=== PATIENT | male | born 1930 | race Caucasian/White ===

== ENCOUNTER 2017-01-07 21:50 | Emergency (ER) | payer MEDICARE, BC ==
[2017-01-07] MEDS ORDERED: NS 0.9% 1000 ML* 1,000 ML IV ONE (22:40)
[2017-01-07] MEDS ORDERED: Lidocaine 2% VISCOUS* 15 ML UDC PO ONE (22:42)
[2017-01-07] MEDS ORDERED: Al Hydrox/Mg Hydrox/Simet LIQ* 30 ML UDC PO ONE (22:42)
--- NOTE | 2017-01-07 22:44 | ED ---
Mallory Salomon Rebecca, scribed for Tom Roper MD on 01/07/17 at 2238 . HPI Chest Pain - HPI Summary HPI Summary: Pt is an 86 y/o M who presents to ED c/o CP. Pain began suddenly at 0500 this morning upon waking up and has been intermittent since onset. Pain is characterized as midsternal pressure and burning and is currently not present, ranked 0/10. Sx alleviated by food, aggravated by nothing, unchanged by antacids. Denies nausea. No prior similar episodes. last evaluated by PCP 1 month ago. - History of Current Complaint Chief Complaint: EDChestPainROMI Time Seen by Provider: 01/07/17 22:31 Hx Obtained From: Patient Onset/Duration: Started Hours Ago - 17 hours ago, Resolved Time of Onset: 05:00 Timing: Intermittent Current Severity: None Pain Intensity: 0 Pain Scale Used: 0-10 Numeric Chest Pain Location: Mid Sternal Chest Pain Radiates: No Character: Burning, Pressure/Squeezing Aggravating Factor(s): Nothing Alleviating Factor(s): Other: - Food Associated Signs and Symptoms: Positive: Negative. Negative: Nausea - Allergy/Home Medications Allergies/Adverse Reactions: Allergies Allergy/AdvReac Type Severity Reaction Status Date / Time Prednisone Allergy Unknown Verified 05/17/16 15:01 Reaction Details BEES Allergy ITCHING, Uncoded 05/17/16 15:01 HEADACHES, SWELLING AT SITE PMH/Surg Hx/FS Hx/Imm Hx Endocrine/Hematology History: Reports: Hx Thyroid Disease - CONTROL WITH Cardiovascular History: Reports: Hx Hypertension GI History: Reports: Hx Gastroesophageal Reflux Disease - CONTROL WITH MEDS, Hx Ulcer - HX OF IN S Musculoskeletal History: Reports: Hx Arthritis Sensory History: Reports: Hx Contacts or Glasses - GLASSES, Hx Hearing Aid - RIGHT Opthamlomology History: Reports: Hx Contacts or Glasses - GLASSES - Surgical History Surgery Procedure, Year, and Place: BILATERAL INGUINAL HERNIA REPAIR, [facility] AND [facility] Hx Anesthesia Reactions: No Infectious Disease History: Denies: Traveled Outside the [place] in Last 30 Days - Family History Known Family History: Positive: Cardiac Disease, Other - Negative skin CA - Social History Alcohol Use: Rare Substance Use Type: Reports: None Smoking Status (MU): Former Smoker Type: Cigarettes Amount Used/How Often: 1 PPD FOR ABOUT 20 YEARS Length of Time of Smoking/Using Tobacco: 20 YEARS Have You Smoked in the Last Year: No Review of Systems Positive: Chest Pain Negative: Nausea All Other Systems Reviewed And Are Negative: Yes Physical Exam Triage Information Reviewed: Yes Vital Signs On Initial Exam: Initial Vitals Temp Pulse Resp BP Pulse Ox 98.4 F 68 18 125/77 97 01/07/17 21:52 01/07/17 21:52 01/07/17 21:52 01/07/17 21:52 01/07/17 21:52 Vital Signs Reviewed: Yes Appearance: Positive: Well-Appearing, No Pain Distress, Thin Skin: Positive: Warm Head/Face: Positive: Normal Head/Face Inspection Eyes: Positive: HINA ENT: Positive: Hearing grossly normal Neck: Positive: Supple Respiratory/Lung Sounds: Positive: Breath Sounds Present Cardiovascular: Positive: Normal Abdomen Description: Positive: Nontender, Soft Bowel Sounds: Positive: Present Musculoskeletal: Positive: Strength/ROM Intact Diagnostics - Vital Signs Vital Signs Temp Pulse Resp BP Pulse Ox 01/07/17 21:52 98.4 F 68 18 125/77 97 - Laboratory Result Diagrams: 01/07/17 23:00 01/07/17 23:00 Lab Statement: Any lab studies that have been ordered have been reviewed, and results considered in the medical decision making process. - EKG 2207 Cardiac Rate: NL - 61 bpm EKG Rhythm: Atrial Fibrillation EKG Interpretation: Moderate ventricular response, no STEMI Re-Evaluation - Re-Evaluation First Eval Change: Improved - results d/w pt Chest Pain Course/Dx - Course Assessment/Plan: Pt is an 86 y/o M who presents to ED c/o intermittent, midsternal burning/pressure CP since 0500 this morning. Pain is currently not present, ranked 0/10. Sx alleviated by food, aggravated by nothing, unchanged by antacids. Denies nausea. No prior similar episodes. last evaluated by PCP 1 month ago. EKG reveals A Fib with no STEMI. He will be D/C to home with Dx of chest pain and dyspepsia. He understands and agrees. Patient medications reviewed this visit. - Diagnoses Provider Diagnoses: Chest pain, Dyspepsia Discharge - Discharge Plan Condition: Stable Disposition: HOME Prescriptions: Famotidine TAB* [Pepcid 20 MG TAB*] 20 mg PO BID #20 tab Patient Education Materials: Indigestion (ED), Diet for Stomach Ulcers and Gastritis (ED) Referrals: Anatoly Travis MD [Medical Doctor] - 3 Days The documentation as recorded by the Mallory hanna Rebecca accurately reflects the service I personally performed and the decisions made by me, Tom Roper MD.
[2017-01-07 23:13] LABS: Hematocrit 30 % (42-52); Hemoglobin 10.3 g/dl (14.0-18.0); Mean Corpuscular HGB Conc 34 g/dl (31-36); Mean Corpuscular Hemoglobin 36 pg (27-31); Mean Platelet Volume 8 um3 (7.4-10.4); Red Blood Count 2.82 10^6/ul (4.0-5.4); Red Cell Distribution Width 15 % (10.5-15); White Blood Count 4.4 10^3/ul (3.5-10.8)
[2017-01-07 23:15] LABS: Comments Flag Yes
[2017-01-07 23:16] LABS: Mean Corpuscular Volume 107 fL (80-94)
[2017-01-07 23:38] LABS: Albumin 3.8 g/dL (3.2-5.2); C Reactive Protein 3.42 mg/L (< 5.00); Calcium 9.4 mg/dL (8.6-10.3); EGFR African American 95.3 (>60); EGFR Non-African American 74.1 (>60); Globulin 3.7 g/dL (2-4); Magnesium 1.8 mg/dL (1.9-2.7); Potassium 3.9 mmol/L (3.5-5.0); Total Bilirubin 0.6 mg/dL (0.2-1.0); Total Protein 7.5 g/dL (6.4-8.9)
[2017-01-07 23:40] LABS: Troponin I 0.01 ng/mL (<0.04)
[2017-01-08 01:51] VITALS: BP 156/85
== END 2017-01-08 01:54 | disposition home or self-care (01) ==
LOC: ED 21:50
DX: R07.89 Other chest pain (principal); R10.13 Epigastric pain; E07.9 Disorder of thyroid, unspecified; I10 Essential (primary) hypertension; K21.9 Gastro-esophageal reflux disease without esophagitis; K44.9 Diaphragmatic hernia without obstruction or gangrene; Z88.8 Allergy status to other drugs, medicaments and biological substances; Z91.030 Bee allergy status; Z87.891 Personal history of nicotine dependence
CPT/HCPCS: 36415; 80053; 83605; 83690; 83735; 84484; 85025; 85610; 86140; 93005; 96360; 99283; A9270-GY

== ENCOUNTER 2017-05-16 09:50 | Day surgery (SDC) | payer MEDICARE, BC ==
[~2017-05-16 09:50] MED LIST: Buffered Lidocaine 0.9% SYRIN* 5 ML/SYR SYRINGE INTRADERM ONE
[2017-05-16] MEDS ORDERED: ceFAZolin 2 GM PREMIX (*) 2 GM/50 ML BAG IVPB ONE (10:06)
[2017-05-16] MEDS ORDERED: Buffered Lidocaine 0.9% SYRIN* 5 ML/SYR SYRINGE ONE (10:06)
[2017-05-16] MEDS ORDERED: fentaNYL* 50 MCG/ML 2 ML VIAL (100 MCG VIAL) ONE (13:00)
[2017-05-16] MEDS ORDERED: Lidocaine 2% PF * 5 ML VIAL ONE (13:01)
[2017-05-16] MEDS ORDERED: Propofol* 10 MG/ML 20 ML BTL IV PUSH ONE (13:01)
[2017-05-16 15:52] VITALS: BP 134/70
== END 2017-05-16 15:40 | disposition home or self-care (01) ==
LOC: OR 09:50
PROVIDERS: ATTEND Plastic Surgery
DX: C44.212 Basal cell carcinoma of skin of right ear and external auricular canal (principal); I48.91 Unspecified atrial fibrillation; I25.10 Atherosclerotic heart disease of native coronary artery without angina pectoris; Z87.891 Personal history of nicotine dependence; Z95.5 Presence of coronary angioplasty implant and graft; Z79.01 Long term (current) use of anticoagulants; E03.9 Hypothyroidism, unspecified; K21.9 Gastro-esophageal reflux disease without esophagitis; Z79.899 Other long term (current) drug therapy; Z85.828 Personal history of other malignant neoplasm of skin
CPT/HCPCS: 88305; 88331; 88332; J0690; J2704; J3010

== ENCOUNTER 2018-02-10 17:37 | Observation (INO) | payer MEDICARE, BC ==
[2018-02-10] MEDS ORDERED: NS 0.9% 1000 ML* 1,000 ML IV ONE (17:50)
--- NOTE | 2018-02-10 17:58 | ED ---
Neurological HPI - HPI Summary HPI Summary: This is scribe Rahat Attebery documenting for attending Segundo Archibald MD. 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 Assoc. Sx: Tremors, RLE weakness. Denies: CP, SOB, WHITAKER. Patient was reportedly walking when he started dragging his R leg. He notes that he started experiencing tremors upon onset of LE weakness. PMHx: A-fib, skin CA, HTN. Denies Hx of DM. Meds: Coumadin. I, Dr. Archibald, personally performed the services described in this documentation as scribed in my presence and it is both accurate and complete. - History of Current Complaint Chief Complaint: EDNeurologicalDeficit Stated Complaint: RT LEG WEAKNESS Hx Obtained From: Patient Onset/Duration: Sudden Onset, Started minutes ago Timing: Sudden Onset Onset Severity: Severe Pain Intensity: 0 Pain Scale Used: 0-10 Numeric Character: Other: - Weakness Associated Signs and Symptoms: Positive: Weakness - RLE. Negative: Headache, Chest Pain, Shortness of Breath - Allergy/Home Medications Allergies/Adverse Reactions: Allergies Allergy/AdvReac Type Severity Reaction Status Date / Time atorvastatin Allergy Unknown Verified 02/10/18 17:55 Reaction Details bee venom protein (honey bee) Allergy Hives/Diff. Verified 02/10/18 17:55 Breathing/I tching finasteride Allergy Unknown Verified 02/10/18 17:55 Reaction Details metoprolol Allergy Unknown Verified 02/10/18 17:55 Reaction Details prednisone Allergy Unknown Verified 02/10/18 17:55 Reaction Details PMH/Surg Hx/FS Hx/Imm Hx Endocrine/Hematology History: Reports: Hx Thyroid Disease - CONTROL WITH, Hx Anemia - HX OF Cardiovascular History: Reports: Hx Coronary Artery Disease - STENT- MONIQUE-1999 , Hx Hypertension, Other Cardiovascular Problems/Disorders - ATHEROSCLEROTIC HEART DISEASE GI History: Reports: Hx Gastroesophageal Reflux Disease - CONTROL WITH MEDS, Hx Ulcer - HX OF IN Musculoskeletal History: Reports: Hx Arthritis Sensory History: Reports: Hx Cataracts - BILATERAL, Hx Contacts or Glasses - GLASSES, Hx Hearing Aid - BILATERAL Opthamlomology History: Reports: Hx Cataracts - BILATERAL, Hx Contacts or Glasses - GLASSES - Surgical History Surgery Procedure, Year, and Place: BILATERAL INGUINAL HERNIA REPAIR, [facility]LA AND [place]. 1999- CARDIAC STENT PLACEMENT Hx Anesthesia Reactions: No Infectious Disease History: No Infectious Disease History: Denies: Traveled Outside the [place] in Last 30 Days - Family History Known Family History: Positive: Cardiac Disease, Other - Negative skin CA - Social History Occupation: Retired Lives: With Family Alcohol Use: Occasionally Substance Use Type: Reports: None Smoking Status (MU): Former Smoker Type: Cigarettes Amount Used/How Often: 1 PPD FOR ABOUT 20 YEARS Length of Time of Smoking/Using Tobacco: 20 YEARS Have You Smoked in the Last Year: No Review of Systems Negative: Fever Negative: Chest Pain Negative: Shortness Of Breath Negative: Vomiting Neurological: Other - POS: tremors Positive: Weakness - RLE. Negative: Headache All Other Systems Reviewed And Are Negative: Yes Physical Exam - Summary Physical Exam Summary: Appearance: Well appearing, no pain distress Skin: warm, dry, reflects adequate perfusion Head/face: Scars on scalp from skin CA removal. Eyes: EOMI, HINA ENT: tongue tremors (+) Neck: supple, non-tender Respiratory: CTA, breath sounds present Cardiovascular: irregular HB, pulses symmetrical, no murmur Abdomen: non-tender, soft Bowel Sounds: present Musculoskeletal: normal, strength/ROM intact Neuro: normal, sensory motor intact, A&Ox3 Extremities: Bilat LE tremors (+), RUE tremors (+) Triage Information Reviewed: Yes Vital Signs On Initial Exam: Initial Vitals Temp Pulse Resp BP Pulse Ox 98.4 F 93 23 147/86 97 02/10/18 17:47 02/10/18 17:47 02/10/18 17:47 02/10/18 17:47 02/10/18 17:47 Vital Signs Reviewed: Yes Diagnostics - Vital Signs Vital Signs Temp Pulse Resp BP Pulse Ox 02/10/18 17:47 98.4 F 93 23 147/86 97 - Laboratory Result Diagrams: 02/10/18 18:16 02/10/18 18:16 Lab Statement: Any lab studies that have been ordered have been reviewed, and results considered in the medical decision making process. - Radiology CXR Xray Interpretation: Positive (See Comments) - IMPRESSION: Mild cardiomegaly Radiology Interpretation Completed By: Radiologist - report has been reviewed by provider and radiologist - CT Brain CT CT Interpretation: No Acute Changes - IMPRESSION: NO ACUTE INTRACRANIAL PATHOLOGY. CHRONIC SMALL VESSEL ISCHEMIC CHANGES. PRELIMINARY FINDINGS WERE DISCUSSED WITH DR. ARCHIBALD IN THE EMERGENCY DEPARTMENT AT APPROXIMATELY 6:09 PM ON FEBRUARY 10, 2018. CT Interpretation Completed By: Radiologist - Report has been reviewed by provider and radiologist - EKG 1810 Cardiac Rate: NL - 87 bpm EKG Rhythm: Atrial Fibrillation ST Segment: Normal EKG Interpretation: nml axis, Poor R-wave progression NIH Scale - NIH Scale Level of Consciousness: Alert/Keenly Responsive Ask Patient the Month and His/Her Age: Both Correct Ask Pt to Open/Close Eyes and Prototype Sewer/Release Non-Paretic Hand: Both Correctly Best Gaze (Only Horizontal Eye Movement): Normal Visual Field Testing: No Visual Loss Facial Paresis-Pt to Smile & Close Eyes or Grimace Symmetry: Normal/Symmetrical Motor Function - Right Arm: No Drift-Holds 10 Seconds Motor Function - Left Arm: No Drift-Holds 10 Seconds Motor Function - Right Leg: No Drift-Holds 10 Seconds Motor Function - Left Leg: No Drift-Holds 10 Seconds Limb Ataxia-Must be out of Proportion to Weakness Present: Absent Sensory (Use Pinprick to Test Arms/Legs/Trunk/Face): Normal Best Language (Describe Picture, Name Items): No Aphasia Dysarthria (Read Several Words): Normal Extinction and Inattention: No Abnormality Total Score: 0 NIH Stroke Scale Comment: Noticed tremors: KAVEH Neal. Course/Dx - Course Course Of Treatment: Patient with acute onset of right lower extremity weakness 20 minutes prior to arrival. NIH stroke score on arrival is 0. Patient is on Coumadin for atrial fibrillation and is subtherapeutic with an INR of 1.25. Initial head CT negative. NIH stroke score is continues to be 0. Hydrated the patient as his creatinine is elevated over baseline with known chronic renal insufficiency. Full dose aspirin given here. Neurology contacted and will see in consultation. Patient to be admitted to hospitalist service. - Differential Dx Differential Diagnoses Neuro: Positive: Other - Ischemic Stroke, TIA, metabolic abnormality, dehydration, hemorrhagic stroke - Diagnoses Provider Diagnoses: TIA (transient ischemic attack), Subtherapeutic international normalized ratio (INR), Atrial fibrillation, Chronic renal insufficiency - Physician Notifications Discussed Care Of Patient With: Tom Hook Time Discussed With Above Provider: 19:10 Instructed by Provider To: Other - Provider spoke with Dr. Hook regarding further care of patient and he agrees to admission of pt. Discharge - Sign-Out/Discharge Documenting (check all that apply): Patient Departure - Discharge Plan Condition: Guarded Disposition: ADMITTED TO [facility] Referrals: Amber Travis MD [Primary Care Provider] - - Billing Disposition and Condition Condition: GUARDED Disposition: Admitted to [facility] Attestations Scribe Attestation: I, Dr. Archibald personally performed the services described in this documentation as scribed in my presence and it is both accurate and complete User Type: Provider
--- NOTE | 2018-02-10 18:08 | RAD ---
HISTORY: Neurological Changes/Code Krause COMPARISONS: November 19, 2004 VIEWS: 1: frontal portable view of the chest at 5:55 PM FINDINGS: LINES AND TUBES: None. CARDIOMEDIASTINAL SILHOUETTE: The cardiac silhouette is mildly enlarged. The cardiomediastinal silhouette is otherwise normal for portable technique. PLEURA: The costophrenic angles are sharp. No pleural abnormalities are noted. LUNG PARENCHYMA: The lungs are clear. ABDOMEN: The upper abdomen is clear. There is no subphrenic gas. BONES AND SOFT TISSUES: No bone or soft tissue abnormalities are noted. IMPRESSION: MILD CARDIOMEGALY.
--- NOTE | 2018-02-10 18:13 | RAD ---
HISTORY: Neurological changes/code guillen COMPARISONS: None TECHNIQUE: Multiple contiguous axial CT scans were obtained of the head without intravenous contrast. FINDINGS: HEMORRHAGE/INFARCT: There is no hemorrhage or acute infarct. MASSES/SHIFT: There is no mass or shift. EXTRA-AXIAL SPACES: There are no extra-axial fluid collections. SULCI AND VENTRICLES: The sulci and ventricles are normal in size and position for the patient's stated age. CEREBRUM: There is hypoattenuation of the periventricular and subcortical white matter. 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 BRAINSTEM: There are no focal parenchymal abnormalities. CEREBELLUM: There are no focal parenchymal abnormalities. VESSELS: There is calcification of the cavernous segments of the internal carotid arteries bilaterally and of the distal vertebral arteries bilaterally. PARANASAL SINUSES: The paranasal sinuses are clear. ORBITS: The orbits are unremarkable. BONES AND SOFT TISSUE: No bone or soft tissue abnormalities are noted. OTHER: None IMPRESSION: NO ACUTE INTRACRANIAL PATHOLOGY. CHRONIC SMALL VESSEL ISCHEMIC CHANGES. PRELIMINARY FINDINGS WERE DISCUSSED WITH DR. EDUARDO IN THE EMERGENCY DEPARTMENT AT APPROXIMATELY 6:09 PM ON FEBRUARY 10, 2018.
[2018-02-10 18:25] LABS: Hematocrit 29 % (42-52); Hemoglobin 10.2 g/dl (14.0-18.0); Mean Corpuscular HGB Conc 35 g/dl (31-36); Mean Corpuscular Hemoglobin 36 pg (27-31); Mean Corpuscular Volume 104 fL (80-94); Mean Platelet Volume 8.1 um3 (7.4-10.4); Platelet Count 170 10^3/ul (150-450); Red Blood Count 2.82 10^6/ul (4.00-5.40); Red Cell Distribution Width 15 % (10.5-15); White Blood Count 5.5 10^3/ul (3.5-10.8)
[2018-02-10 18:26] LABS: ABS Basophils 0 10^3/ul (0-0.2); ABS Eosinophils 0 10^3/ul (0-0.6); ABS Lymphocytes 0.9 10^3/ul (1.0-4.8); ABS Neutrophils 3.6 10^3/ul (1.5-7.7); ABS Nucleated RBC 0 10^3/ul
[2018-02-10 18:33] LABS: INR 1.25 (0.77-1.02)
[2018-02-10 18:42] LABS: EGFR Non-African American 39.5 (>60)
[2018-02-10] MEDS ORDERED: Aspirin 81 mg CHEW TAB* 81 MG TAB.CHEW PO ONE (19:10)
[2018-02-10 19:38] LABS: Eosinophil % 0.1 % (0-6); Lymphocyte % 16.6 % (25-47); Nucleated Red Blood Cells % 0.2
[2018-02-10] MEDS ORDERED: Ondansetron INJ* 2 MG/ML VIAL IV PRN (20:28)
[2018-02-10] MEDS ORDERED: Acetaminophen TAB* 325 MG PO PRN (20:28)
[2018-02-10] MEDS ORDERED: NS 0.9% 1000 ML* 1,000 ML IV SCH (20:30)
--- NOTE | 2018-02-11 00:05 | HP ---
CC: Dr. Travis; Dr. Hook.* HISTORY AND PHYSICAL: DATE OF ADMISSION: 02/10/18 PRIMARY CARE PROVIDER: Dr. Travis. ATTENDING PHYSICIAN WHILE IN THE HOSPITAL: Dr. Rakesh Conde * (report dictated by Jake Narvaez NP). CONSULTING NEUROLOGIST: Dr. Hook. CHIEF COMPLAINT: Difficulty moving right leg. HISTORY OF PRESENT ILLNESS: Mr. Wakefield is an 88-year-old male patient. He carries a history of hypertension, CAD, skin cancer, GERD, arthritis, BPH, and hyperlipidemia. He has a history of AFib as well. He is on chronic anticoagulation. He is presenting today. He was living in his son's house. They were playing a game of cards and having lunch, he was walking. He typically has pain in his left hip, but he was noticing that he could not move his right leg. He was dragging it while he was walking and he was walking leaning to the right and having a very unsteady gait. He denied having any trouble with his right arm, denied having any visual changes or trouble with his speech, trouble with word finding. He is right handed. It lasted for about 15 to 20 minutes. It was ongoing for over 15 to 20 minutes. The family was concerned and they felt that he should be evaluated in the hospital. He came into the ED. By the time he arrived in the ER, his symptoms had improved. A code guillen was called, however, he had no more weakness. Because of this, TPA was not given because he had rapid improvement. He again denied having any facial dropping, denied any numbness or tingling to that leg, denied having any pain. He says he just could not lift the leg. He denies any recent change in medications. He denies having any recent fevers or chills. No chest pain. No palpitation. No abdominal pain or any nausea or vomiting. He came into the ED. He was evaluated. Because of concerns for TIA versus stroke, we were asked to evaluate for admission. PAST MEDICAL HISTORY: Significant for: 1. AFib. 2. CAD. 3. Skin cancer. 4. GERD. 5. Arthritis. 6. Hyperlipidemia. 7. BPH. PAST SURGICAL HISTORY: 1. He has had inguinal hernia repair x3. 2. Cardiac catheterization 18 years ago. HOME MEDICATIONS: This is an old list. I need to get an accurate one. He does not have a list. We were trying to obtain one. Last one that I have in the system is: 1. Diltiazem 120 mg p.o. daily. 2. Lovenox 80 mg subcu q.a.m. 3. Lecithin 1200 mg p.o. b.i.d. 3. Synthroid 25 mcg p.o. daily. 4. Lisinopril 5 mg p.o. daily. 5. Protonix 40 mg p.o. every third day. 6. Systane eyedrops 1 drop to both eyes b.i.d. as needed. 7. Zocor 20 mg at bedtime. 8. Flomax 0.4 mg q.p.m. 9. Coumadin 3 mg q.p.m. 10. Zinc 12 mg p.o. q.a.m. 11. Vitamin C 500 mg p.o. b.i.d. Again, I need to get an updated list. The list is, I am unsure how old it is. ALLERGIES: His allergies to medications include LIPITOR, BEES, PROSCAR, METOPROLOL, PREDNISONE. FAMILY HISTORY: His mother had a history of heart disease, father had a history of CA. SOCIAL HISTORY: He is a former smoker. He does not drink alcohol. He lives alone. Surrogate decision maker is his son. REVIEW OF SYSTEMS: There is no documented fever. He denies having any significant weight change. There was no double vision. He denies having any ear discharge. There was no rhinorrhea. He denies having any sore throat. There was no thyroid enlargement. He denied having any chest pain. There is no orthopnea, no nocturnal dyspnea. There was no abdominal pain. There is no nausea, no vomiting. There was no dysuria, no frequency. There was no seizure , no loss of consciousness. No pruritus and no skin ulceration. Review of 14 systems was completed, all others negative. PHYSICAL EXAMINATION GENERAL: At this time, Mr. Wakefield is an 88-year-old male patient. He is sitting in the ED stretcher. He appears to be well nourished and well developed. He does not appear to be in acute distress. VITAL SIGNS: Reveals blood pressure 144/77, pulse 76, respirations 14, O2 sat 97%, temperature 98.4. HEENT: Head, atraumatic and normocephalic. Eyes: EOMs are intact. Sclerae anicteric and not pale. Throat: Oral mucosa appears to be moist. No oropharyngeal erythema. NECK: Supple. LUNGS: Clear to auscultation bilaterally. There were no wheezes, rales, or rhonchi. HEART: Sounds S1, S2. He had a regular rate and rhythm. No murmurs, rubs or gallops. ABDOMEN: Soft. It was flat, nontender. Bowel sounds are present. EXTREMITIES: Pulses were 2+ throughout. He is able to move all 4 extremities with 5/5 strength. NEUROLOGIC: The patient is awake. He is alert. He is oriented x3. His speech is clear. Nxcbjl-[id number]-acyr is intact bilaterally. [id number] is intact bilaterally. Hair Dresser were equal. Tongue is midline. Cranial nerves II through XII were intact. On gait, it is noted that he is favoring and going to his right , but he is able to pick that leg up, but he denies any dizziness or lightheaded feelings. SKIN: Intact. DIAGNOSTIC STUDIES/LAB DATA: His labs today, WBC 5.5, RBC 2.82, hemoglobin 10.2, hematocrit of 29, and platelet count of 170. INR 1.25, PTT of 28.8. Sodium was 129, potassium 4, chloride 96, bicarb 25, BUN 47, creatinine 1.65, glucose 101, lactate , calcium 8.9, total bili 0.6, AST 48, ALT 32, alk phos is 70. Troponin 0.02. Albumin 4.0. He did have a brain CT obtained today. Impression, no acute intracranial pathology, chronic small vessel ischemic changes. He had a chest x-ray obtained today, which shows mild cardiomegaly. EKG obtained today, showed an atrial fibrillation, rate of 87. He had no ST elevations or T wave inversions noted. The previous EKG is similar with the exception the rate is slower with the previous EKG. He does have LVH. Old medical records reviewed. ASSESSMENT AND PLAN: Mr. Wakefield is an 88-year-old male patient coming into the ED today with complaints of stroke-like symptoms. He was having trouble moving his right leg. By the time he arrived in the ER, his symptoms drastically improved. We were asked to evaluate for admission. He will be admitted under observatory status for: 1. Transient ischemic attack versus cerebrovascular accident: Again, he does have a little bit of slight deficit still, with ambulation he is a kind of listing to the right, but other than that he is walking, he is talking, he is moving all 4 extremities. He has got good 5/5 strength. TPA was not given because of his NIH stroke scale of 0. He had vast improvement. Risks and benefits discussion was had with the patient for TPA, and they have declined knowing that the risk of bleeding at this point given that the fact that he was doing well, the family felt that they will hold off at this point and the patient was in agreement with this and he consented this. He was able to tell me the risks and benefits of TPA transfusion and they opted not to because of such a subtle deficit. I also did discuss with them the role of CTA. His GRF is 39. I did explain to them that there is risk with doing CTA and possibly causing harm to kidneys with IV dye and the pretest probability of having a large vessel occlusion is quite low given his subtle deficits. They felt at this point that they would like to hold off and they would not want to pursue aggressive procedures if it was not a large vessel occlusion such as clot extraction given the risk of bleeding and the fact that he is doing so well currently and the likelihood of a large vessel occlusion is small. So at this point, I touch based with Dr. Hook, he was in agreement with this. Dr. Hook had advised me to undergo the risks and benefits discussion with the family, which I did per his recommendations and the family at this point is opting to hold CTA evaluation and they did not want TPA because he is doing well. Going forward, we are going to check an MRI. He does have atrial fibrillation and we are going to get an echo, carotid ultrasound per the recommendations of Neurology. I will get lipid panel. We will start continuing him on aspirin. I am not going to bridge him tonight because I do not know the extent of permanent damage and possible stroke. I would like to get an MRI to make sure that there were no areas of infarct prior to starting bridging on Coumadin because of risk of bleeding. The family is aware of this risk and they are in agreement. So, we will get an MRI. If the MRI is negative tomorrow, we will start him back up on his Coumadin with a possible bridge per the recommendations of Neurology. For the time being, he is started on aspirin tonight, telemetry, frequent neuro checks, and we will continue to follow him closely. 2. Atrial fibrillation: Again, at this point, he is rate controlled. I am going to try to get his medications reconciled, so we can get those restarted, but I do want to allow for permissive hypertension in the setting of possible transient ischemic attack versus cerebrovascular accident. 3. Coronary artery disease: Again, he will be on aspirin. We will get the records. He will need to be put back on the statin if he is still taking it. He is not taking BETA-TORITO because he is allergic. 4. Skin cancer: Follow up with his PCP. 5. Gastroesophageal reflux disease: Restart his PPI once we can confirm what he is taking. 6. Arthritis: Continue p.r.n. Tylenol. 7. Hyperlipidemia: It does look like he is on Zocor, however, we need to clarify this. I will restart this when able. We will check his lipid panel. 8. Benign prostatic hyperplasia. Continue his current medical regimen. 9. DVT prophylaxis: I have ordered SCDs. 10. Code status: He wished to be a DNR. 11. Fluids, electrolytes, and nutrition: He passed his bedside swallowing eval. He can have a heart healthy diet. TIME SPENT: On the admission was 60 minutes, greater than half time was spent face- to-face with the patient, obtaining my history and physical, the other half time was spent going over the plan of care with the patient and implementing the plan of care. I did discuss the plan of care with my attending, Dr. Conde; he is in agreement. JAKE NARVAEZ, DONYA [id number]/CPS #: [id number] LOS
[2018-02-11] MEDS: Tamsulosin CAP* 0.4 MG PO SCH ×2 (01:08→08:28)
[2018-02-11 01:42] LABS: Urine Appearance Cloudy; Urine Blood Negative (Negative); Urine Color Yellow; Urine Ketones Negative (Negative); Urine Protein 1+(30 mg/dL) (Negative); Urine Red Blood Cell 1+(3-5/hpf) (Absent); Urine Specific Gravity 1.013 (1.010-1.030); Urine Urobilinogen Negative (Negative); Urine White Blood Cell Trace(0-5/hpf) (Absent)
[2018-02-11 05:59] LABS: Hematocrit 27 % (42-52); Hemoglobin 9.3 g/dl (14.0-18.0); Mean Corpuscular HGB Conc 35 g/dl (31-36); Mean Corpuscular Hemoglobin 36 pg (27-31); Mean Corpuscular Volume 103 fL (80-94); Mean Platelet Volume 7.9 um3 (7.4-10.4); Platelet Count 153 10^3/ul (150-450); Red Blood Count 2.58 10^6/ul (4.00-5.40); Red Cell Distribution Width 15 % (10.5-15); White Blood Count 5.1 10^3/ul (3.5-10.8)
[2018-02-11 06:10] LABS: INR 1.29 (0.77-1.02)
[2018-02-11 06:21] LABS: ABS Basophils 0 10^3/ul (0-0.2); ABS Eosinophils 0 10^3/ul (0-0.6); ABS Lymphocytes 0.7 10^3/ul (1.0-4.8); ABS Monocytes 0.8 10^3/ul (0-0.8); ABS Neutrophils 3.6 10^3/ul (1.5-7.7); ABS Nucleated RBC 0 10^3/ul
[2018-02-11 07:03] LABS: ABS Basophils 0 10^3/ul (0-0.2); ABS Neutrophils 3.7 10^3/ul (1.5-7.7); Monocytes % 12 % (0-7)
[2018-02-11 07:59] LABS: EGFR Non-African American 52.9 (>60)
[2018-02-11] MEDS ORDERED: Aspirin 81 mg CHEW TAB* 81 MG TAB.CHEW PO SCH (09:00)
--- NOTE | 2018-02-11 09:53 | RAD ---
HISTORY: tia ? CVa COMPARISONS: Head CT dated February 10, 2018 TECHNIQUE: The following sequences were obtained of the head: Sagittal T1-weighted images, axial T2-weighted images, axial FLAIR images, axial susceptibility weighted images, axial T1-weighted images. Additionally, axial diffusion-weighted images were obtained with calculated apparent diffusion coefficients. FINDINGS: HEMORRHAGE/INFARCT: There is a single punctate focus of restricted diffusion within the left posterior frontal chan radiata as seen on axial image 19. Elsewhere, there is no hemorrhage or acute infarct. MASSES/SHIFT: There is no mass or shift. EXTRA-AXIAL SPACES/MENINGES: There are no extra-axial fluid collections. SULCI AND VENTRICLES: The sulci and ventricles are normal in size and position for the patient's stated age. CEREBRUM: There are multiple scattered small foci of elevated T2/FLAIR signal within the periventricular and subcortical white matter. BRAINSTEM: There are no focal parenchymal abnormalities. CEREBELLUM: There are no focal parenchymal abnormalities. The cerebellar tonsils are normal in size and position. SELLA: The sella is normal. PINEAL: The pineal region is clear. CP ANGLE/TEMPORAL BONES: The labyrinthine structures are grossly normal. VESSELS: Normal flow-voids are noted within the visualized vertebral vasculature. DIFFUSION ABNORMALITIES: As noted above, there is a punctate focus of restricted diffusion within the left posterior frontal chan radiata. PARANASAL SINUSES/MASTOIDS: The paranasal sinuses are clear. ORBITS: The orbits are unremarkable. BONES AND SOFT TISSUE: No bone or soft tissue abnormalities are noted. OTHER: None IMPRESSION: 1. PUNCTATE FOCUS OF RESTRICTED DIFFUSION WITHIN THE LEFT POSTERIOR FRONTAL CHAN RADIATA CONSISTENT WITH SUBACUTE NONHEMORRHAGIC INFARCT. 2. SCATTERED WHITE MATTER CHANGES SUGGESTIVE CHRONIC SMALL VESSEL ISCHEMIA.
[2018-02-11 12:04] VITALS: BP 132/75
[2018-02-11] MEDS ORDERED: Diltiazem CD CAP* 120 MG PO SCH (13:00)
[2018-02-11] MEDS ORDERED: Levothyroxine TAB* 25 MCG TAB PO SCH (13:00)
[2018-02-11] MEDS ORDERED: Warfarin TAB(*) 4 MG PO SCH (13:00)
--- NOTE | 2018-02-11 13:22 | ECHO ---
Patient: DANIELLA KAPOOR Rec#: [id number] : 1930 Date: 02/11/2018 Age: 88y Height: 182.88 cm / 72.0 in Weight: 75.3 kg / 166.0 lbs Sex: M BSA: 1.97 Room#: 444 Admit Date#: 02/10/2018 Type: Inpatient Referring: Jake Narvaez NP Reading: Daniel Branham MD Rate Inserter: Mirian Perez CHRISTOPHER CC: Amber Travis MD CC: Tom Hook MD Transthoracic Echocardiogram Indication: TIA BP: 129/66 HR: 93 Rhythm: NSR with PACs Findings History: A-fib,CAD,GERD,HLD,former smoker. Technical Comments: The study quality is good. Completed at 1145. Left Ventricle: The left ventricular chamber size is normal. Global left ventricular wall motion and contractility are within normal limits. There is normal left ventricular systolic function. The estimated ejection fraction is 60-65%. Abnormal left ventricular diastolic function is observed. Left Atrium: The left atrium is moderately dilated. Right Ventricle: The right ventricular cavity size is normal. The right ventricular global systolic function is normal. Right Atrium: The right atrium is moderately dilated. A patent foramen ovale is not demonstrated with color Doppler and agitated contrast. Aortic Valve: The aortic valve leaflets are mildly thickened. Systolic excursion of the aortic valve cusps is reduced. There is moderate aortic regurgitation. There is mild aortic stenosis. The mean gradient of the aortic valve is 9.22 mmHg. The highest aortic valve velocity was obtained with the standard probe from the A5C view. Mitral Valve: The mitral valve leaflets are mildly thickened. There is mild mitral regurgitation. There is no evidence of mitral stenosis. Tricuspid Valve: The tricuspid valve leaflets are normal. There is mild to moderate tricuspid regurgitation. There is evidence of mild pulmonary hypertension. There is no tricuspid stenosis. Pulmonic Valve: The pulmonic valve appears normal. There is no evidence of pulmonic regurgitation. There is no pulmonic stenosis. Pericardium: The pericardium appears normal. Aorta: There is no dilatation of the ascending aorta. There is no dilatation of the aortic arch. There is mild dilatation of the aortic root. Pulmonary Artery: The main pulmonary artery appears normal. Venous: The inferior vena cava appears normal in size. There is a greater than 50% respiratory change in the inferior vena cava dimension. Contrast: Normal saline was used as contrast for the bubble study. Intravenous contrast was used to help determine presence of intracardiac shunting. Conclusions Global left ventricular wall motion and contractility are within normal limits. There is normal left ventricular systolic function. The estimated ejection fraction is 60-65%. The right ventricular global systolic function is normal. Systolic excursion of the aortic valve cusps is reduced. There is moderate aortic regurgitation. There is mild aortic stenosis. The mean gradient of the aortic valve is 9.22 mmHg. There is mild mitral regurgitation. There is mild to moderate tricuspid regurgitation. There is evidence of mild pulmonary hypertension. A patent foramen ovale is not demonstrated with color Doppler and agitated contrast. Measurements Name Value Normal Range RVIDd (AP) 2D 3.1 cm (0.9 - 2.6) RVDdMajor (2D) 3.5 cm (2.2 - 4.4) RAd ISD 4CH 6.1 cm (3.4 - 4.9) RA (A4C)W 4.9 cm (2.9 - 4.6) IVSd (2D) 0.7 cm (0.6 - 1) LVPWd (2D) 0.9 cm (0.6 - 1) LVIDd (2D) 4.2 cm (3.6 - 5.4) LVIDs (2D) 2.7 cm - LV FS (2D) 36 % (25 - 45) Aortic Annulus 1.8 cm (1.4 - 2.6) Ao root diameter (2D) 3.8 cm (2.1 - 3.5) Ascending Ao 2.8 cm (2.1 - 3.4) Aortic arch 2.3 cm (1.8 - 3.4) Descending Ao 0.4 cm - LA dimension (AP) 2D 4.8 cm (2.3 - 3.8) LAd ISD 4CH 6.1 cm (2.9 - 5.3) LA ISD 4CH W 5.1 cm (2.5 - 4.5) Name Value Normal Range LA ESV SP 4CH (A/L) 97 ml - LA ESV SP 2CH (A/L) 200 ml - LA ESV BP (A/L) 159 ml - LA ESV BP (A/L) index 80.82 ml/m2 - LA ESV SP 4CH (MOD) 86 ml - LA ESV SP 2CH (MOD) 189 ml - Name Value Normal Range MV E-wave Vmax 1.2 m/sec - MV deceleration time 189 msec - MV A-wave Vmax 0.4 m/sec - MV E:A ratio 3.39 ratio - LV septal e' Vmax 0.07 m/sec - LV lateral e' Vmax 0.11 m/sec - LV E:e' septal ratio 17.17 ratio - LV E:e' lateral ratio 10.9 ratio - Name Value Normal Range AV Vmax 2.1 m/sec - AV VTI 38.2 cm - AV peak gradient 17.36 mmHg - AV mean gradient 9.22 mmHg - LVOT diameter 1.9 cm - LVOT Vmax 0.8 m/sec - LVOT VTI 14 cm - LVOT peak gradient 2.71 mmHg - LVOT mean gradient 1.08 mmHg - CHRISTI (continuity Vmax) 1.1 cm2 - CHRISTI (continuity VTI) 1 cm2 - AR PHT 359 msec - AR peak gradient 83 mmHg - Name Value Normal Range MR Vmax 5.4 m/sec - MR VTI 151 cm - Name Value Normal Range TR Vmax 3.1 m/sec - TR peak gradient 37 mmHg - RAP 3 mmHg - RVSP 40 mmHg - IVC diameter 1.7 cm - Name Value Normal Range PV Vmax 0.7 m/sec - PV peak gradient 1.73 mmHg -
--- NOTE | 2018-02-11 15:55 | RAD ---
HISTORY: TIA COMPARISONS: None TECHNIQUE: Multiple transverse and longitudinal ultrasound images were obtained of the carotid and vertebral arteries bilaterally, using grayscale, color Doppler, and spectral Doppler imaging. FINDINGS: Measurement of carotid stenosis is based on flow velocity parameters that correlate the residual internal carotid artery diameter with [place] Symptomatic Carotid Endarterectomy Trial (NASCET)-based stenosis levels. RIGHT: Intima: There is diffuse intimal thickening with more focal atheroma formation at the bifurcation. Velocities: Right internal carotid artery maximum peak systolic velocity: 100 cm/s Right common carotid artery maximum peak systolic velocity: 87 cm/s Right internal carotid artery/common carotid artery ratio: 1.1 Waveforms: There is no spectral broadening. Right Vertebral: The right vertebral artery flow is antegrade. LEFT: Intima: There is diffuse intimal thickening with more focal atheroma formation at the bifurcation. Velocities: Left internal carotid artery maximum peak systolic velocity: 95 cm/s Left common carotid artery maximum peak systolic velocity: 113 cm/s Left internal carotid artery/common carotid artery ratio: 1 Waveforms: There is no spectral broadening. Left Vertebral: The left vertebral artery flow is antegrade. OTHER FINDINGS: None. IMPRESSION: 1. ATHEROMATOUS DISEASE. 2. NO HEMODYNAMICALLY SIGNIFICANT STENOSIS OF THE RIGHT INTERNAL CAROTID ARTERY BY FLOW VELOCITY MEASUREMENTS. THIS CORRESPONDS TO A LUMINAL DIAMETER OF LESS THAN 50% STENOSIS BY NASCET CRITERIA. 3. NO HEMODYNAMICALLY SIGNIFICANT STENOSIS OF THE LEFT INTERNAL CAROTID ARTERY BY FLOW VELOCITY MEASUREMENTS. THIS CORRESPONDS TO A LUMINAL DIAMETER OF LESS THAN 50% STENOSIS BY NASCET CRITERIA. CPT II Codes: 3100F
[2018-02-11] MEDS ORDERED: Tamsulosin CAP* 0.4 MG PO SCH (18:00)
[2018-02-11] MEDS ORDERED: CMC:Simvastatin TAB(NF) 20 MG TAB PO SCH (18:00)
[2018-02-11] MEDS ORDERED: Lisinopril TAB* 5 MG PO SCH (18:00)
--- NOTE | 2018-02-11 23:47 | DS ---
CC: Dr. Rosales; Dr. Amber Travis, [facility] * DISCHARGE SUMMARY: DATE OF ADMISSION: DATE OF DISCHARGE: 02/11/18 HOSPITAL COURSE: This 88-year-old man presented with difficulty moving his right leg. It started the day of admission lasting 15 to 20 minutes. He was improved before he got to the emergency room. As per son's report and the patient, he seems to be completely back to baseline. He walks independently without assistive device. I did watch him walk on the day of discharge. He seemed quite safe and steady. CT scan of the brain did not show any significant abnormality. MRI of the brain done the next day did show a small area of restricted diffusion within the left posterior frontal chan radiata consistent with subacute nonhemorrhagic infarct. On admission, the patient's INR was 1.25, which was 1.29 the next morning. He was given 4 mg of warfarin before discharge and was instructed to increase his warfarin to 4 mg daily. I phoned in a prescription for 2 mg tablets, so he could take 2 a day. He had difficulty voiding and had to be catheterized. His postvoid residual on the morning of discharge was 781 mL. This was shortly after he had voided 550 mL. I noticed creatinine is within his previous results and was 1.28 here on the day of discharge. He has already seen Dr. Rosales and will call back Dr. Rosales's office for an appointment hopefully within a week. The patient had a Allen inserted and will go home with a leg bag. FINAL DIAGNOSES: 1. Cerebrovascular accident. 2. Atrial fibrillation. 3. Acute urinary retention. 4. Hypothyroidism. 5. Hypertension. DISCHARGE MEDICATIONS: 1. Warfarin 2 mg 2 tablets daily at 5 p.m. 2. Tamsulosin 0.4 mg h.s. 3. Lisinopril 5 mg daily. 4. Levothyroxine 25 mcg daily. 5. Diltiazem CD 120 mg daily. 6. Zinc 12 mg daily. 7. Multivitamin 1 daily. 8. Simvastatin 20 mg daily. [id number]/[facility] #: [id number] MTDD
[2018-02-12] MEDS ORDERED: Tamsulosin CAP* 0.4 MG PO SCH (21:00)
== END 2018-02-11 17:47 | disposition home or self-care (01) ==
LOC: ED 17:37 → MEDTELE 20:18
PROVIDERS: ADMIT Hospitalist; ATTEND Internal Medicine
DX: I63.9 Cerebral infarction, unspecified (principal); I48.91 Unspecified atrial fibrillation; R33.9 Retention of urine, unspecified; E03.9 Hypothyroidism, unspecified; I10 Essential (primary) hypertension; I25.10 Atherosclerotic heart disease of native coronary artery without angina pectoris; Z95.5 Presence of coronary angioplasty implant and graft; R53.1 Weakness; Z87.891 Personal history of nicotine dependence; Z79.01 Long term (current) use of anticoagulants; Z85.828 Personal history of other malignant neoplasm of skin; M19.92 Post-traumatic osteoarthritis, unspecified site; E78.5 Hyperlipidemia, unspecified; Z79.82 Long term (current) use of aspirin
CPT/HCPCS: 36415; 70450; 70551; 71045; 80048; 80053; 80061; 81003; 81015; 83036; 83605; 84484; 85025; 85060; 85610; 85730; 87086; 93005; 93306; 93880; 96374; 99285; A9270-GY; G0378; G8978-GP-CJ; G8979-GP-CI

== ENCOUNTER → 2018-03-11 | Emergency (ER) | payer MEDICARE, BC ==
[~2018-03-11] MED LIST changes: -Buffered Lidocaine 0.9% SYRIN* 5 ML/SYR SYRINGE INTRADERM ONE; +NS 0.9% 500 ML* 500 ML IV ONE
--- OUTSIDE RECORDS SUMMARY | 2018-03-11 06:53 | XMS REPORT ---
:1930 External Reference #:[id number] Author Organization [employer] Address [address] [place] [address] [place] [address] Phone [phone] Care Team Providers Name Role Phone Amber Travis MD Primary Care Physician Unavailable Payers Type Date Identification Numbers Payment Provider Subscriber Medicare Primary Effective: Policy Number: Medicare Mohamud Stiles 1994 [id number] Ashu PayID: [id number] [address] [place] [address] Medigap Part B Effective: Policy Number: BS Chanel Kapoor 2012 [id number] PayID: [id number] [address] [address] [place] [address] Medigap Part B Effective: Policy Number: BS LIBBY Kapoor 2010 [id number] Expires: 2012 PayID: [id number] [facility] [id number] [place] [id number] Problems Date Description Provider Status Onset: 05/01/2013 Coronary arteriosclerosis Daniel Branham M.D. Active Onset: 05/01/2013 Atrial fibrillation Daniel Branham M.D. Active Onset: 05/01/2015 Chronic atrial fibrillation Daniel Branham M.D. Active Family History Date Family Member(s) Problem(s) Comments : (age 74 Years) Father due to [place] : (age 64 Years) Mother due to Heart Disease : (age 37 Years) First Brother due to [place] First Sister due to Cancer, Lung () Second Sister Hypertension Social History Type Date Description Comments Marital Status 2 children Marital Status Occupation Retired Occupation [employer] Cigarette Use Former Cigarette Smoker Pt denies smoking cigar, pipe, e-cigarettes, or using chewing tobacco. ETOH Use Rarely consumes alcohol Smoking Patient is a former smoker Recreational Drug Use Denies Drug Use Daily Caffeine Consumes on average 2 cups of regular coffee per day Exercise Type/Frequency Does not exercise Allergies, Adverse Reactions, Alerts Date Description Reaction Status Severity Comments 05/09/2012 Lipitor rash? active 05/09/2012 Finasteride rash active 05/09/2012 Prednisone pains in stomach active 05/09/2012 Bee Sting headaches, all over itching active 05/09/2012 Metoprolol SOB active Medications Medication Date Status Form Strength Qnty SIG Indications Ordering Provider Diltiazem HCL 10/29/ Active Caps ER 120mg 90caps 1 by mouth Daniel NATHANIEL 2013 24HR every day Yue Branham M.D. Lisinopril 06/04/ Active Tablets 5mg 90tabs 1 tab by Daniel 2011 mouth Yue Branham every day Arnie Nitrostat 05/25/ Active Tablets 0.4mg 25tabs one sl Daniel 2011 Sub q5min up Yue Branham to 3 doses M.DPam prn, if no relief call 911 Simvastatin 05/09/ Active Tablets 20mg 90tabs 1 by mouth Daniel 2011 every day Yue Branham M.D. Levothyroxine / Active Tablets 25mcg 30tabs 1 tablet Unknown Sodium 0000 on an empty stomach in the morning orally once a day Flomax / Active Capsules 0.4mg 90caps 1 capsule Unknown 0000 30 mins after the same meal each day orally. Once a day. Warfarin Sodium 00/ Active as Unknown 0000 directed Multiple / Active Tablets 1 po qd Unknown Vitamins 0000 Vitamin C / Active Capsules 500mg 1 po bid Unknown 0000 Zinc / Active 12mg 1 po qd Unknown 0000 Epipen 2-Michael / Active Solution 0.3mg/0.3M use as Unknown 0000 Auto-Injec L directed t Finasteride / Active Tablets 5mg 1 by mouth Unknown 0000 every day Diltiazem HCL 10/29/ Hx Caps ER 120mg 90caps 1 by mouth Daniel ER 2013 - 12HR every day Yue Branham Arnie 2013 Diltiazem HCL 10/29/ Hx Tablets 120mg 1 by mouth Daniel 2013 - every day Yue Branham Arnie 2013 Diltiazem CD 05/09/ Hx Caps ER 120mg 90caps 1 po qd Daniel 2011 - 24HR Yue Branham Arnie 2013 Protonix / Hx Tablets DR 40mg 30tabs 1 po prn Unknown - 2017 Soya Lecithin / Hx Capsules 1200mg 1 po bid Unknown - 2017 Desiccated Beef / Hx Tablet 1 po qd Unknown Liver 2017 Vitamin B12 / Hx [id number] daily Unknown 2014 Vital Signs Date Vital Result Comment 03/01/2018 Height 70 inches 5'10" Weight 160.12 lb with shoes Heart Rate 93 /min BP Systolic Sitting 82 mmHg right arm, regular cuff, sitting BP Diastolic Sitting 48 mmHg right arm, regular cuff, sitting Respiratory Rate 18 /min Body Temperature 98.2 F O2 % BldC Oximetry 96 % BMI (Body Mass Index) 23.0 kg/m2 Ejection Fraction 60-65% 02/10/18 12/21/2017 Height 70 inches 5'10" Weight 171.00 lb with sneakers Heart Rate 71 /min BP Systolic Sitting 120 mmHg left arm, regular cuff, sitting BP Diastolic Sitting 68 mmHg left arm, regular cuff, sitting BP Systolic Standing 122 mmHg left arm, regular cuff, standing BP Diastolic Standing 68 mmHg left arm, regular cuff, standing Respiratory Rate 16 /min Body Temperature 97.9 F O2 % BldC Oximetry 98 % BMI (Body Mass Index) 24.5 kg/m2 Ejection Fraction 60% 03/20/03 12/23/2016 Height 70 inches 5'10" Weight 172.00 lb with shoes Heart Rate 80 /min BP Systolic Sitting 110 mmHg Rue reg cuff BP Diastolic Sitting 60 mmHg Rue reg cuff BP Systolic Standing 104 mmHg Rue ret cuff BP Diastolic Standing 68 mmHg Rue ret cuff Respiratory Rate 17 /min BMI (Body Mass Index) 24.7 kg/m2 Ejection Fraction 60% date 03/20/2003 ECHO 04/29/2016 Height 70 inches 5'10" Weight 166.00 lb w/ shoes Heart Rate 72 /min irreg BP Systolic Sitting 96 mmHg Rue, reg cuff BP Diastolic Sitting 60 mmHg Rue, reg cuff BP Systolic Standing 96 mmHg Rue BP Diastolic Standing 64 mmHg Rue Respiratory Rate 16 /min BMI (Body Mass Index) 23.8 kg/m2 Ejection Fraction 60% as of 03/20/03 echo 05/01/2015 Height 70 inches 5'10" Weight 166.00 lb w/o shoes Heart Rate 90 /min irreg BP Systolic Sitting 116 mmHg Rue, reg cuff BP Diastolic Sitting 66 mmHg Rue, reg cuff BP Systolic Standing 108 mmHg Rue BP Diastolic Standing 70 mmHg Rue Respiratory Rate 18 /min BMI (Body Mass Index) 23.8 kg/m2 Ejection Fraction 60% as of 03/20/2003 echo 09:49 Am 05/09/2014 Height 70 inches 5'10" Weight 169.31 lb with shoes Heart Rate 83 /min BP Systolic Sitting 114 mmHg LA, reg cuff BP Diastolic Sitting 72 mmHg LA, reg cuff BP Systolic Standing 112 mmHg LA BP Diastolic Standing 76 mmHg LA Respiratory Rate 16 /min BMI (Body Mass Index) 24.3 kg/m2 05/01/2013 Height 70 inches 5'10" Weight 177.00 lb Heart Rate 84 /min BP Systolic Sitting 120 mmHg Ra reg cuff BP Diastolic Sitting 72 mmHg Ra reg cuff BP Systolic Standing 114 mmHg Ra BP Diastolic Standing 70 mmHg Ra BMI (Body Mass Index) 25.4 kg/m2 Results Test Date Test Result H/L Range Note Laboratory test 05/16/2017 Surgical Pathology SEE RESULT BELOW 1 finding Laboratory test 12/06/2016 Surgical Pathology SEE RESULT BELOW 2, 3 finding 1 SEE RESULT BELOW Name: MOHAMUD KAPOOR : [address]: Tom Hernandez MD Acct: [id number] Unit: [id number] AGE: 87 Location: OR Re05/16/17 SEX: M Status: [facility] SPEC: [id number] ERIC: 05/16/[address] [facility] [address]: Tom Hernandez MD REQ: [id number] RECD: 05/16/17 STATUS: UMBERTO MCCALLUM DR: Amber Velazco MD _ ORDERED: FS 1ST PER SPEC, FS ADD PER SPEC, LEVEL 4 FINAL DIAGNOSIS Skin, right ear helix, excision: -- Basal cell carcinoma, superficial and nodular type. -- All margins are clear. COMMENT: The previous lesion at this site ([id number] #1) has been completely excised. PATHOLOGY SURGICAL CONSULT Frozen section (FS)/Touch Prep (TP)/Gross Consult (GC) FS) Skin, superior helix right ear, excision: a. Basal cell carcinoma. (EP) b. All margins clear. (EP) Findings discussed with Dr Hernandez on 05/16/17 at 1353. PRE-OPERATIVE DIAGNOSIS Basal cell carcinoma superior helix right ear; suture rodriguez anterior superior helix margin GROSS DESCRIPTION The specimen is received fresh labeled, Excision Basal Cell Carcinoma Right Ear [place], and consists of a 2.0 by up to 1.5 cm connelly-pink triangular skin and cartilage fragment excised to a depth of 0.5 cm with a connelly-red ill-defined ulceration measuring up to 0.4 cm. There is an attached suture which as per the accompanying requisition designates the anterior superior helix margin. The specimen is inked as follows: posterior half-black, anterior half-blue and anterior superior margin-green, serially sectioned from superior to inferior and entirely submitted for frozen section microscopy. The frozen section residue is submitted CONTINUED ON NEXT PAGE * ML=Testing performed at [facility] DEPARTMENT OF PATHOLOGY, [address] [place] [address] Bartolo Alvarado M.D. Director PILI # [id number] RUN DATE: 05/22/17 [facility] LIVE PAGE 2 Patient: MOHAMUD KAPOOR [id number] (Continued) GROSS DESCRIPTION (Continued) GROSS DESCRIPTION (Continued) in cassettes FSA and FSB to include ends in cassette FSA. Signed (signature on file) Priya Woods MD [id number] END OF REPORT * ML=Testing performed at Main Lab DEPARTMENT OF PATHOLOGY, [address] [place] [address] Bartolo Alvarado M.D. Director PILI # [id number] 2 [id number] SEE RESULT BELOW Name: MOHAMUD KAPOOR : [address]: Tom Hernandez MD Acct: [id number] Unit: [id number] AGE: 86 Location: [facility] Re12/06/16 SEX: M Status: REG REF SPEC: [id number] ERIC: 12/06/16-[address] [facility] [address]: Tom Hernandez MD REQ: [id number] RECD: 12/06/16 STATUS: UMBERTO MCCALLUM DR: Amber Rosales MD _ ORDERED: LEVEL 4 COMMENTS: [id number] FINAL DIAGNOSIS Skin, left paramedian posterior vertex scalp, excision: -- Scar and residual hyperplastic actinic keratosis. -- All margins are clear. COMMENT: The previous lesion at this site ([id number]) has been completely excised. CLINICAL HISTORY See [facility] [id number] PRE-OPERATIVE DIAGNOSIS Hyperplastic actinic keratosis GROSS DESCRIPTION The specimen is received in formalin labeled, Excision Hyperplastic Actinic Keratosis Left Paramedian Posterior Vertex Scalp, Suture Rodriguez 12:00 Anterior Superior Center Margin, and consists of a 3.5 x 1.4 cm white-pink bosselated to scabrous skin ellipse excised to a depth of 0.3 cm. There is a suture attached to one long axis designating the 12: 00 anterior superior apex margin. The specimen is inked as follows: 3:00 half blue, and o'clock half black, 12:00 tip green, serially sectioned from 12:00 to 6:00 and entirely submitted in cassettes A through F to include tips in cassette A. Signed (signature on file) Priya Woods MD 1053 END OF REPORT * ML=Testing performed at Main Lab DEPARTMENT OF PATHOLOGY, [address] [place] [address] Bartolo Alvarado M.D. Director [facility] # [id number] Procedures Date CPT Code Description Status 02/11/2018 49121 ECHO Transthorasic Realtime 2D W Doppler & Color Flow Completed Hosp 12/21/2017 07363 EKG, Interpretation Only Completed 04/29/2016 60732 EKG Tracing & Interpretation Completed 05/01/2015 87405 EKG Tracing & Interpretation Completed 05/09/2014 60779 EKG Tracing & Interpretation Completed 05/01/2013 85122 EKG Tracing & Interpretation Completed 05/09/2012 33694 EKG Tracing & Interpretation Completed Encounters Type Date Location Provider CPT E/M Dx Office Visit 02/11/2018 [facility],skylar Conroy, 37872 I63.9 11:00a Vicenta Gaitan I48.91 R33.9 Office Visit 02/10/2018 10:59a [facility],skylar Narvaez, 01961 I63.9 Hospitalists Kaley I48.91 Office Visit 12/21/2017 10:45a [facility] Daniel Branham M.D. 19694 I48.2 I25.10 Office Visit 12/23/2016 10:30a [facility] Daniel Branham 13348 I48.2 Dat Gaitan I25.10 Office Visit 04/29/2016 1:45p [facility] Daniel Branham, 24851 I25.10 Dat Gaitan I48.2 Office Visit 05/01/2015 10:15a [facility] Daniel Branham, 85685 I25.10 Dat Gaitan I48.2 Office Visit 05/09/2014 11:30a [facility] Daniel Branham, 86172 414.01 Dat Gaitan 427.31 Office Visit 05/01/2013 8:00a [facility] Daniel Branham, 48585 414.01 Dat Gaitan 427.31 Office Visit 05/09/2012 8:45a [facility] Harley Branham, 49583 427.31 Dat Gaitan 414.9 Plan of Care 03/01/2018 - Daniel Branham M.D.I48.2 Chronic atrial fibrillationFollow up:1 monthRecommendations:Admit to [facility] ED for eujbfypjsaE91.10 Athscl heart disease of algaaciq coronary artery w/o ang mesxvL68.9 Hypotension, unspecified
--- NOTE | 2018-03-11 07:27 | ED ---
GI/ HPI - HPI Summary HPI Summary: Patient presents with return of urinary retention. He reports he last had any urine leave his urethra at 4 AM this morning. He had a catheter placed last week due to acute urinary retention of unknown cause. He had a follow-up with Dr. Rosales who first son said his prostate looked fine his bladder scope looked fine and the catheter was removed to see if patient could urinate on his own starting Monday. He was good for the first day however that second day he started to have changes in urinary flow again. This is been progressively worse until this morning which brought him in. He's having lower abdominal pain and pressure 8 out of 10. Denies fever, chills, flank pain, chest pain, nausea, vomiting. His son reports that at follow up with Dr. Rosales his blood pressure was low (systolic in the 70s). One of his medications was dropped and his blood pressure is improved since then. Dr. Galvez also evaluated his med list to check for medications a cause retention - son reports none were mentioned. Additionally, patient has not had a bowel movement beyond small pellets since one and a half to 2 weeks ago. He is still eating without difficulty and passing gas below. He's been taking a liquid laxative without relief. History of abdominal surgery entails 2 hernia repairs in the 1980s. He has had no complications or issues with his abdomen or digestive tract since. 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 Verified 03/11/18 06:14 Breathing/I tching finasteride Allergy Unknown Verified 03/11/18 06:14 Reaction Details metoprolol Allergy Unknown Verified 03/11/18 06:14 Reaction Details prednisone Allergy Unknown Verified 03/11/18 06:14 Reaction Details PMH/Surg Hx/FS Hx/Imm Hx Previously Healthy: Yes Endocrine/Hematology History: Reports: Hx Thyroid Disease - CONTROL WITH, Hx Anemia - HX OF Cardiovascular History: Reports: Hx Atrial Fibrillation - on coumadin, Hx Coronary Artery Disease - STENT- [place]-1999, Hx Hypertension, Other Cardiovascular Problems/Disorders - ATHEROSCLEROTIC HEART DISEASE GI History: Reports: Hx Gastroesophageal Reflux Disease - CONTROL WITH MEDS, Hx Ulcer - HX OF IN Musculoskeletal History: Reports: Hx Arthritis Sensory History: Reports: Hx Cataracts - BILATERAL, Hx Contacts or Glasses, Hx Hearing Aid Opthamlomology History: Reports: Hx Cataracts - BILATERAL, Hx Contacts or Glasses - Surgical History Surgery Procedure, Year, and Place: BILATERAL INGUINAL HERNIA REPAIR, [facility]. 1999- CARDIAC STENT PLACEMENT Hx Anesthesia Reactions: No Infectious Disease History: No Infectious Disease History: Denies: Traveled Outside the [place] in Last 30 Days - Family History Known Family History: Positive: Cardiac Disease, Other - Negative skin CA - Social History Occupation: Retired Alcohol Use: None Hx Substance Use: No Substance Use Type: Reports: None Hx Tobacco Use: Yes - not currently Smoking Status (MU): Former Smoker Type: Cigarettes Amount Used/How Often: 1 PPD FOR ABOUT 20 YEARS Length of Time of Smoking/Using Tobacco: 20 YEARS Have You Smoked in the Last Year: No Review of Systems Constitutional: Negative Negative: Fever, Chills, Fatigue Cardiovascular: Negative Respiratory: Negative Gastrointestinal: Other - constipation Positive: Abdominal Pain. Negative: Vomiting, Diarrhea, Nausea Positive: see HPI Musculoskeletal: Negative Skin: Negative Neurological: Negative Psychological: Normal All Other Systems Reviewed And Are Negative: Yes Physical Exam Triage Information Reviewed: Yes Vital Signs On Initial Exam: Initial Vitals Temp Pulse Resp BP Pulse Ox 98.8 F 100 16 135/79 96 03/11/18 06:07 03/11/18 06:07 03/11/18 06:07 03/11/18 06:07 03/11/18 06:07 Vital Signs Reviewed: Yes Appearance: Positive: Well-Appearing, Well-Nourished, Pain Distress Skin: Positive: Warm, Skin Color Reflects Adequate Perfusion, Dry Head/Face: Positive: Normal Head/Face Inspection Eyes: Positive: Normal, EOMI, Conjunctiva Clear - anicteric sclera ENT: Positive: Hearing grossly normal - aids in place, Pharynx normal - mucosa moist Neck: Positive: Supple Respiratory/Lung Sounds: Positive: Breath Sounds Present Cardiovascular: Positive: IRR Abdomen Description: Positive: Soft, Other: - lower ab TTP Bowel Sounds: Positive: Present Musculoskeletal: Positive: Normal, Strength/ROM Intact Neurological: Positive: Normal, Sensory/Motor Intact, Alert, Oriented to Person Place, Time, CN Intact II-III Psychiatric: Positive: Normal Diagnostics - Vital Signs Vital Signs Temp Pulse Resp BP Pulse Ox 03/11/18 06:07 98.8 F 100 16 135/79 96 - Laboratory Result Diagrams: 03/11/18 07:27 03/11/18 07:27 Lab Statement: Any lab studies that have been ordered have been reviewed, and results considered in the medical decision making process. Re-Evaluation - Re-Evaluation First Eval Change: Improved - pt's pain improved w/ catheter placement GIGU Course/Dx - Diagnoses Provider Diagnoses: Urinary retention, Constipation Discharge - Sign-Out/Discharge Documenting (check all that apply): Patient Departure - Discharge Plan Condition: Stable Disposition: HOME Patient Education Materials: Constipation (ED), Urinary Retention in Men (ED) Referrals: Stephan Rosales MD [Medical Doctor] - Amber Travis MD [Primary Care Provider] - Additional Instructions: Take magnesium citrate when you get home to aid in moving your bowels. If this does not trigger a bowel movement, you may advance to a glycerin suppository with Fleet's enema. If you still do not have a bowel movement, seek medical attention. For your urinary retention, follow-up tomorrow with Dr. Rosales. If you feel worse in the meantime, return to the ED - Billing Disposition and Condition Condition: STABLE Disposition: Home
[2018-03-11 07:37] LABS: Hematocrit 25 % (42-52); Hemoglobin 8.8 g/dl (14.0-18.0); Mean Corpuscular HGB Conc 35 g/dl (31-36); Mean Corpuscular Hemoglobin 36 pg (27-31); Mean Corpuscular Volume 103 fL (80-94); Mean Platelet Volume 7.1 um3 (7.4-10.4); Platelet Count 282 10^3/ul (150-450); Red Blood Count 2.43 10^6/ul (4.00-5.40); Red Cell Distribution Width 15 % (10.5-15)
[2018-03-11 07:43] LABS: ABS Basophils 0.1 10^3/ul (0-0.2); ABS Eosinophils 0 10^3/ul (0-0.6); ABS Lymphocytes 0.9 10^3/ul (1.0-4.8); ABS Monocytes 1.1 10^3/ul (0-0.8); ABS Neutrophils 5.9 10^3/ul (1.5-7.7); ABS Nucleated RBC 0 10^3/ul; Eosinophil % 0.6 % (0-6); Lymphocyte % 11.6 % (25-47); Nucleated Red Blood Cells % 0
[2018-03-11 07:50] LABS: INR 1.7 (0.77-1.02)
[2018-03-11 07:56] LABS: EGFR Non-African American 58.7 (>60)
--- NOTE | 2018-03-11 08:35 | RAD ---
INDICATION: Abdominal pain COMPARISON: None TECHNIQUE: Supine and upright views of the abdomen were obtained. FINDINGS: The small bowel and colon appear nondistended. No free intraperitoneal air is seen. Incidentally noted is coarse atherosclerotic calcification overlying the splenic artery and bilateral iliac arteries. Visualized bones are within normal limits for the patient's age. IMPRESSION: Normal and age-appropriate abdominal radiograph.
[2018-03-11 09:10] LABS: Urine Appearance Cloudy; Urine Blood 1+ (Negative); Urine Color Yellow; Urine Ketones Negative (Negative); Urine Protein Negative (Negative); Urine Red Blood Cell Trace(0-2/hpf) (Absent); Urine Specific Gravity 1.009 (1.010-1.030); Urine Urobilinogen Negative (Negative); Urine White Blood Cell 3+(>20/hpf) (Absent)
[2018-03-11 09:59] VITALS: BP 128/65
--- NOTE | 2018-03-14 18:08 | PN ---
Progress Note - Progress Note Date of Service: 03/11/18 Note: Pt. seen in ER 03/11/18 for urinary retention after recent removal of lofton cath. Urine culture today is growing >100,000 staph. lugdenensis. Attempted to call pt. today at 0736 with no answer, message left to return call. Second attempt to call pt. was made in afternoon with no answer. Will attempt to call again in a.m.
== END | disposition home or self-care (01) ==
LOC: ED 06:06
CPT/HCPCS: 36415; 74019; 80053; 81003; 81015; 83605; 83690; 85025; 85610; 85730; 86140; 87086

== ENCOUNTER 2018-12-12 11:45 | Day surgery (SDC) | payer MEDICARE, BC ==
[~2018-12-12 11:45] MED LIST changes: +Acetaminophen TAB* 325 MG PO PRN; +Buffered Lidocaine 1% SYRIN* 1 ML/SYRINGE INTRADERM ONE; +Cyclopentolate 1% OPTH.SOL* 2 ML BTL ONE; +Ketorolac 0.5% OPHTH (NF) 0.5 % 5 ML BTL ONE; +Lidocaine 2% EPI 1:200000 MPF*10-20 ML VIAL ONE; -NS 0.9% 500 ML* 500 ML IV ONE; +Neomycin/Polymy/Dex OPTH.SUSP* MAXITROL 0.1% 5 ML ONE; +Phenylephrine OPHTH SOL 2.5%* 2 ML ONE; +Povidone Iodine 5% OPTH* 30 ML BTL ONE; +Proparacaine 0.5% OPHTH.SOL* 15 ML BTL ONE; +acetaZOLAMIDE TAB* 250 MG ONE
[2018-12-12] MEDS ORDERED: Midazolam* 1 MG/ML 2 ML VIAL (2 MG) ONE (14:37)
--- NOTE | 2018-12-12 15:43 | OP ---
OPERATIVE NOTE: DATE OF OPERATION: 12/12/18 DATE OF : [birth year] SURGEON: Per Woo M.D. PREOPERATIVE DIAGNOSIS: Cataract, left eye. POSTOPERATIVE DIAGNOSIS: Cataract, left eye. OPERATIVE PROCEDURE: Extracapsular cataract extraction with intraocular lens implant left eye. PROCEDURE: The patient was brought to the operating room after being given 1/2% Alcaine with epineph rine drops in the preoperative area. The eye was prepped and draped in the usual sterile fashion. S terile drape and eyelid speculum were placed. Again, topical 1/2% Alcaine with epinephrine was given . A paracentesis incision was made at the 3 o'clock position with the No.75 blade. Clear cornea inc ision 2.2 x 2.2-mm was created at the 6 o'clock position starting at the anterior limbus using the 2. 2-mm keratome. The anterior chamber was irrigated with 0.4 mL of 1% non-preservative intracameral li docaine and filled with DisCoVisc. A capsulorrhexis was completed using the cystotome and the Utrata forceps. Hydrodissection was performed with balanced salt solution. The lens nucleus was removed wi th the Phacoemulsification handpiece without incident. Cortex was removed with the irrigation-aspira tion handpiece. The capsular bag was re-inflated using DisCoVisc and an [id number] implant was insert ed with the shooter. The irrigation-aspiration handpiece was used to remove all residual DisCoVisc. The eye was refilled with balanced salt solution and the wound checked and found to be watertight. Topical Maxitrol drops were given. [id number]/[facility] #: [id number]
[2018-12-12 16:06] VITALS: BP 143/72
== END 2018-12-12 15:05 | disposition home or self-care (01) ==
LOC: OREAST 11:45
PROVIDERS: ATTEND Specialist
DX: H25.12 Age-related nuclear cataract, left eye (principal); H04.123 Dry eye syndrome of bilateral lacrimal glands; C44.1192 Basal cell carcinoma of skin of left lower eyelid, including canthus; I10 Essential (primary) hypertension; E03.9 Hypothyroidism, unspecified; E78.00 Pure hypercholesterolemia, unspecified
CPT/HCPCS: A9270-GY; J2250; V2632

== ENCOUNTER 2018-12-19 09:18 | Day surgery (SDC) | payer MEDICARE, BC ==
[~2018-12-19 09:18] MED LIST changes: -Cyclopentolate 1% OPTH.SOL* 2 ML BTL ONE; -Ketorolac 0.5% OPHTH (NF) 0.5 % 5 ML BTL ONE; -Lidocaine 2% EPI 1:200000 MPF*10-20 ML VIAL ONE; -Neomycin/Polymy/Dex OPTH.SUSP* MAXITROL 0.1% 5 ML ONE; -Phenylephrine OPHTH SOL 2.5%* 2 ML ONE; -Povidone Iodine 5% OPTH* 30 ML BTL ONE; -Proparacaine 0.5% OPHTH.SOL* 15 ML BTL ONE; -acetaZOLAMIDE TAB* 250 MG ONE
[2018-12-19] MEDS ORDERED: Cyclopentolate 1% OPTH.SOL* 2 ML BTL ONE (11:21)
[2018-12-19] MEDS ORDERED: Lidocaine 1%** 5 ML VIAL ONE (11:21)
[2018-12-19] MEDS ORDERED: Neomycin/Polymy/Dex OPTH.SUSP* MAXITROL 0.1% 5 ML ONE (11:21)
[2018-12-19] MEDS ORDERED: Proparacaine 0.5% OPHTH.SOL* 15 ML BTL ONE (11:21)
[2018-12-19] MEDS ORDERED: Phenylephrine OPHTH SOL 2.5%* 2 ML ONE (11:21)
[2018-12-19] MEDS ORDERED: acetaZOLAMIDE TAB* 250 MG ONE (11:21)
[2018-12-19] MEDS ORDERED: Povidone Iodine 5% OPTH* 30 ML BTL ONE (11:21)
[2018-12-19] MEDS ORDERED: Lidocaine 2% EPI 1:200000 MPF*10-20 ML VIAL ONE (11:21)
[2018-12-19] MEDS ORDERED: Ketorolac 0.5% OPHTH (NF) 0.5 % 5 ML BTL ONE (11:21)
[2018-12-19] MEDS ORDERED: Midazolam* 1 MG/ML 2 ML VIAL (2 MG) ONE (11:26)
[2018-12-19 12:59] VITALS: BP 140/75
--- NOTE | 2018-12-19 13:15 | OP ---
OPERATIVE NOTE: DATE OF OPERATION: 12/19/18 DATE OF : [birth year] SURGEON: Per Woo M.D. PREOPERATIVE DIAGNOSIS: Cataract, right eye. POSTOPERATIVE DIAGNOSIS: Cataract, right eye. OPERATIVE PROCEDURE: Extracapsular cataract extraction with intraocular lens implant right eye. PROCEDURE: The patient was brought to the operating room after being given 1/2% Alcaine with epineph rine drops in the preoperative area. The eye was prepped and draped in the usual sterile fashion. S terile drape and eyelid speculum were placed. Again, topical 1/2% Alcaine with epinephrine was given . A paracentesis incision was made at the 9 o'clock position with the No. 75 blade. Clear cornea in cision 2.2 x 2.2-mm was created at the 12 o'clock position starting at the anterior limbus using the 2.2-mm keratome. The anterior chamber was irrigated with 0.4 mL of 1% non-preservative intracameral lidocaine and filled with DisCoVisc. A capsulorrhexis was completed using the cystotome and the Utra ta forceps. Hydrodissection was performed with balanced salt solution. The lens nucleus was removed with the Phacoemulsification handpiece without incident. Cortex was removed with the irrigation-aspi ration handpiece. The capsular bag was re-inflated using DisCoVisc and an [id number] implant was inserte d with the shooter. The irrigation-aspiration handpiece was used to remove all residual DisCoVisc. The eye was refilled with balanced salt solution and the wound checked and found to be watertight. T opical Maxitrol drops were given. [id number]/[facility] #: [id number]
== END 2018-12-19 12:46 | disposition home or self-care (01) ==
LOC: OREAST 09:18
PROVIDERS: ATTEND Specialist
DX: H25.11 Age-related nuclear cataract, right eye (principal); H04.123 Dry eye syndrome of bilateral lacrimal glands; C44.1192 Basal cell carcinoma of skin of left lower eyelid, including canthus; I10 Essential (primary) hypertension; E03.9 Hypothyroidism, unspecified; E78.00 Pure hypercholesterolemia, unspecified; I48.91 Unspecified atrial fibrillation; Z79.01 Long term (current) use of anticoagulants
CPT/HCPCS: A9270-GY; J2250; V2632